=== PATIENT | male | born 1995 | race African-American/Black ===

== ENCOUNTER 2017-02-23 15:00 | Emergency (ER) | payer OTHER ==
[2017-02-23 15:04] VITALS: BP 120/82
--- NOTE | 2017-02-23 15:40 | PHYS DOC ---
Adult General Chief Complaint Chief Complaint: FINGER INJURY HPI HPI Patient is a 21-year-old right-handed man who presents to the ED with the complaint of injury to the right pinky finger which occurred early this morning. His finger was jammed. He has pain over the DIP joint. He denies other injury. Review of Systems Review of Systems Musculoskeletal: Denies other injury today, although he has his left arm in a sling from a previous injury. Physical Exam Physical Exam Constitutional: Well developed, well nourished, no acute distress, non-toxic appearance. Alert, mentating normally. HENT: Normocephalic, atraumatic, bilateral external ears normal, nose normal. [ ] Eyes: conjunctiva normal, no discharge. [] Neck: Normal range of motion, no stridor. [] Skin: Warm, dry, no erythema, no rash. [] Extremities: Right hand: Swelling and tenderness of the DIP joint. Difficulty testing the integrity of the flexor tendon due to swelling and discomfort. It appears at this time that the FDS and FDP are intact. He is able to extend his finger but extending against resistance is painful. EKG EKG [] Radiology/Procedures Radiology/Procedures Three-view x-ray of the right pinky finger read by me. There is a fracture of the proximal aspect of the distal phalanx dorsally. [] Course & Med Decision Making Course & Med Decision Making Pertinent Labs and Imaging studies reviewed. (See chart for details) Right DIP joint of the little finger is injured and does show a fracture on x- rays. Patient was advised that he needs to follow up with a hand specialist for further evaluation. The finger was placed in a splint in extension. [] Dragon Disclaimer Dragon Disclaimer This chart was dictated in whole or in part using Voice Recognition software in a busy, high-work load, and often noisy Emergency Department environment. It may contain unintended and wholly unrecognized errors or omissions. Departure Departure: Impression: Primary Impression: Fracture of distal phalanx of right little finger Disposition: 01 HOME, SELF-CARE Condition: STABLE Referrals: FROILAN DELACRUZ MD Patient Instructions: Finger Fracture, [id number] Additional Instructions: You do have a fracture (broken bone) on the joint where you have pain and swelling. It's important to follow up with a hand specialist because this type of fracture can involve a tendon and can result in permanent finger deformity if it is not cared for by a specialist. Leave the splint on until you're seen by a specialist. Ibuprofen if needed for pain, ice. SRAVANI SR MD Feb 23, 2017 15:40
--- NOTE | 2017-02-23 16:18 | RAD ---
Indication: Jammed fifth digit, pain at distal interphalangeal joint. Technique: 3 views of the left fifth digit including an AP view of the hand are submitted for review. No comparison is available. Findings: Best apparent on the lateral view is an acute traumatic fracture of the proximal aspect of the distal phalanx of the fifth digit, minimally displaced. No additional fracture is identified and there is no dislocation. Impression: Acute traumatic fracture fifth distal phalanx.
== END 2017-02-23 15:42 | disposition home or self-care (01) ==
LOC: ER 15:00
DX: S62.636A Displaced fracture of distal phalanx of right little finger, initial encounter for closed fracture (principal); W23.0XXA Caught, crushed, jammed, or pinched between moving objects, initial encounter; Y93.89 Activity, other specified; Y99.8 Other external cause status; Y92.89 Other specified places as the place of occurrence of the external cause
CPT/HCPCS: 29130; 73140; 99284-25